=== PATIENT | male | born 1965 | race Caucasian/White ===

== ENCOUNTER 2024-11-06 23:27 | Emergency (ER) | payer BC ==
[~2024-11-06] VITALS: Ht 182.9 cm; Wt 70.3 kg
[2024-11-06 23:57] LABS: BASOPHILS # (AUTO) 0.1 K/UL (0.0-0.2); EOSINOPHILS # (AUTO) 0.2 K/uL (0.0-0.7); EOSINOPHILS % (AUTO) 1.8 % (0.0-7.0); HEMOGLOBIN 13.8 g/dL (12.5-16.3); LYMPHOCYTES # (AUTO) 4.5 K/uL (0.8-4.8); LYMPHOCYTES % (AUTO) 43.4 % (20.5-51.5); MEAN CORPUSCULAR HGB CONC 35 g/dL (32.5-36.3); MEAN CORPUSCULAR VOLUME 89.8 fL (73.0-96.2); MONOCYTES # (AUTO) 0.7 K/uL (0.1-1.30); MONOCYTES % (AUTO) 7.1 % (0.0-11.0); NEUTROPHILS # (AUTO) 4.8 K/uL (1.8-8.9); NEUTROPHILS % (AUTO) 46.7 % (38.5-71.5); PLATELET COUNT (AUTO) 338 K/uL (152-348); RED BLOOD CELL COUNT(AUTO) 4.45 MIL/uL (4.06-5.63); WHITE BLOOD COUNT (AUTO) 10.4 K/uL (3.6-10.2)
[2024-11-07] MEDS ORDERED: LORAZEPAM 2 MG/1 ML VIAL ONE
[2024-11-07 00:02] LABS: DIFFERENTIAL COMMENT 1
[2024-11-07] MEDS: LORAZEPAM 2 MG/1 ML VIAL IV ONE (00:03)
[2024-11-07 00:22] LABS: ALBUMIN 3.4 g/dL (3.4-5.0); BILIRUBIN,DIRECT 0.1 mg/dL (0.0-0.2); BILIRUBIN,TOTAL 0.3 mg/dL (0.2-1.0); TOTAL PROTEIN, SERUM 7.6 g/dL (6.4-8.2)
[2024-11-07 00:46] LABS: CALCIUM 8.6 mg/dL (8.5-10.1); CARBON DIOXIDE 24 mmol/L (21-32); CHLORIDE 105 mmol/L (98-107); CREATININE 1.1 mg/dL (0.6-1.3); GLUCOSE 120 mg/dL (74-106); POTASSIUM 3.9 mmol/L (3.5-5.1); SODIUM SERUM 143 mmol/L (136-145); UREA NITROGEN, BLOOD 20 mg/dL (7-18)
[2024-11-07] MEDS: IV NS 1000 ML 1,000 ML IV ONE (01:00)
[2024-11-07 01:03] LABS: LACTIC ACID 3.4 mmol/L (0.4-2.0)
[2024-11-07] MEDS ORDERED: IV NORMAL SALINE 250 ML IV ONE (01:38)
[2024-11-07] MEDS ORDERED: SWABABLE VALVE TRANSFER SET EA MC ONE (01:38)
[2024-11-07] MEDS ORDERED: IOHEXOL 350 100 ML INFUS..BTL ONE (01:38)
[2024-11-07] MEDS ORDERED: HEPARIN/D5W DRIP 500 ML IV PRN (02:30)
[2024-11-07] MEDS ORDERED: SERT25TA PO (03:01)
[2024-11-07] MEDS ORDERED: PROP80CA51 PO (03:01)
[2024-11-07] MEDS ORDERED: ALPR0.5T PO (03:01)
[2024-11-07] MEDS ORDERED: HEPARIN SODIUM,PORCINE 5,000 UNITS/ML VIAL ONE (04:05)
[2024-11-07] MEDS: HEPARIN/D5W DRIP 500 ML IV PRN (04:30)
[2024-11-07 04:34] VITALS: O2SAT 97
== END 2024-11-07 04:41 | disposition short-term general hospital (02) ==
LOC: ER 23:30
DX: I63.9 Cerebral infarction, unspecified (principal); I65.1 Occlusion and stenosis of basilar artery; R47.01 Aphasia; R42 Dizziness and giddiness; F17.210 Nicotine dependence, cigarettes, uncomplicated; F32.A Depression, unspecified; H02.402 Unspecified ptosis of left eyelid; I10 Essential (primary) hypertension; Z79.899 Other long term (current) drug therapy
CPT/HCPCS: 99291; 80076; 80048; 83880; 85025; 85730; 84484; 36415 ×2; 93005; 99292; 83605 ×2; 70496; 96374; 70498; J2060; Q9967; A4606; A4663; J1644

== ENCOUNTER 2024-11-07 04:55 | Emergency (ER) | payer BC ==
[~2024-11-07] VITALS: Ht 182.9 cm; Wt 70.3 kg
[2024-11-07] MEDS: ETOMIDATE 20 MG/10 ML VIAL IV ONE (04:52)
[~2024-11-07 04:55] MED LIST: ALPR0.5T PO; PROP80CA51 PO; SERT25TA PO
[2024-11-07 05:20] VITALS: O2SAT 70
[2024-11-07] MEDS: SUCCINYLCHOLINE CHLORIDE 200 MG/10 ML VIAL IV ONE (05:54)
== END 2024-11-07 05:20 | disposition short-term general hospital (02) ==
LOC: ER 04:59
DX: I63.9 Cerebral infarction, unspecified (principal); J96.00 Acute respiratory failure, unspecified whether with hypoxia or hypercapnia; F17.210 Nicotine dependence, cigarettes, uncomplicated; F32.A Depression, unspecified; F41.9 Anxiety disorder, unspecified; Z79.899 Other long term (current) drug therapy
CPT/HCPCS: 99285; 31500; 71045; J0330; A4606; A4663